=== PATIENT | male | born 1950 | race Caucasian/White ===

== ENCOUNTER 2018-09-02 16:25 | Inpatient (IN) ==
[2018-09-02] MEDS ORDERED: dilTIAZem HCl 125 MG in DEXTROSE 5% 100 ML IV SCH (16:45)
[2018-09-02] MEDS ORDERED: dilTIAZem HCl 5 MG/ML 5 ML VIAL IV STA (16:45)
--- NOTE | 2018-09-02 17:08 | XRay Report ---
XR chest 1V portable CLINICAL HISTORY: palpitations cardiac arrhythmia COMPARISON STUDY: No previous studies for comparison. FINDINGS: The bones soft tissues and hemidiaphragms are normal. The cardiomediastinal silhouette is n ormal. The lungs are clear. The pulmonary vasculature is normal. IMPRESSION: Negative chest. The above report was generated using voice recognition software. It may contain grammatical, syntax or spelling errors. Electronically signed by: Dejuan Geller M.D. 09/02/2018 5:07 PM
[2018-09-02 17:17] LABS: Basophils # (auto) 0.02 K/uL (0-0.2); Basophils % (auto) 0.2 %; Eosinophils # (auto) 0.09 K/uL (0-0.5); Eosinophils % (auto) 0.8 %; Hematocrit (blood only) 46.2 % (42-52); Hemoglobin 16.9 g/dL (14.0-18.0); Immature Granulocytes # (auto) 0.03 K/uL (0.00-0.02); Immature Granulocytes % (auto) 0.3 %; Lymphocytes # (auto) 2.51 K/uL (1.2-3.4); Lymphocytes % (auto) 23.4 %; Mean Corpuscular Hgb Conc 36.6 g/dL (32-36); Mean Corpuscular Volume 89.9 fL (80-100); Monocytes # (auto) 1.34 K/uL (0.11-0.59); Monocytes % (auto) 12.5 %; Neutrophils # (auto) 6.75 K/uL (1.4-6.5); Neutrophils % (auto) 62.8 %; Platelet Count 229 K/uL (130-400); RDW Coefficient of Variation 12.7 % (11.5-14.5); RDW Standard Deviation 41.7 fL (36.4-46.3); Red Blood Count 5.14 M/uL (4.7-6.1); White Blood Count 10.74 K/uL (4.8-10.8)
[2018-09-02 17:28] LABS: Prothrombin Time 10.7 Seconds (9.0-12.0)
[2018-09-02 17:32] LABS: BUN Creatinine Ratio 22.8 (10-20); Calcium 9.3 mg/dl (8.5-10.1); Creatinine Clr Calc Pharmacy 74.7 ml/min; Est GFR (African American) 89.7; Est GFR (Non-African American) 77.4; Magnesium 2.6 mg/dl (1.8-2.4); Potassium 3.7 mmol/L (3.5-5.1)
[2018-09-02 17:43] LABS: Albumin Globulin Ratio 1.2 (0.9-2); Globulin 3.4 gm/dl (2.5-4.0); Total Protein 7.4 gm/dl (6.4-8.2); Troponin I 0.022 ng/ml (0-0.045)
--- NOTE | 2018-09-02 18:58 | Emergency Department Note ---
Entered by Farida Campos acting as a scribe for History of Present Illness General Chief complaint: Arrhythmia/Palpitations Stated complaint: IRREGULAR HEARTBEAT, ELEVATED BP Source: patient History of Present Illness Onset (ago): day(s) 2 Location: chest Severity: similar to prior episodes Quality: + other (arrhythmias and an elevated blood pressure ) Associated symptoms: + other; no chest pain and no shortness of breath The patient is a 67 year old male who presents to the Emergency Room with complaints of arrhythmias and an elevated blood pressure beginning a few days ferry [place]. He reports he was exercising a lot this morning and he felt like he did not have "all the energy usually had" but did not have any chest pain or SOB. He notes he has had this feeling for the past few days but he did not think anything of it. The patient states he called Vish Soni this morning and he recommended the patient go to the ED for further evaluation. Pt notes he has had an irregular heart beat for a while however, his elevated blood pressure is new. The patient states he had a similar episode a few years ago and his potassium was low. Pt has a hx of high blood pressure and is on 100 mg of Losartan, gout medication, and a statin. Home Medications Home Medications Medication Instructions Recorded Confirmed Type allopurinol 300 mg PO DAILY 09/02/18 09/02/18 History atorvastatin 10 mg PO DAILY 09/02/18 09/02/18 History cholecalciferol (vitamin D3) 2,000 unit PO DAILY 09/02/18 09/02/18 History [Vitamin D3] cyanocobalamin (vitamin B-12) 1,000 mcg PO DAILY 09/02/18 09/02/18 History [Vitamin B-12] flaxseed oil 1,000 mg PO DAILY 09/02/18 09/02/18 History losartan 100 mg PO DAILY 09/02/18 09/02/18 History lutein 20 mg PO DAILY 09/02/18 09/02/18 History omega 5-agn-dqr-fish oil [Fish Oil] 1 cap PO DAILY 09/02/18 09/02/18 History vit C,Y-Jc-hprdc-lutein-zeaxan 1 tab PO DAILY 09/02/18 09/02/18 History [PreserVision AREDS-2] vitamin B complex 1 tab PO DAILY 09/02/18 09/02/18 History Allergies Allergy/AdvReac Type Severity Reaction Status Date / Time Penicillins Allergy Unknown Unverified 09/02/18 16:48 Sulfa (Sulfonamide Allergy Unknown Unverified 09/02/18 16:48 Antibiotics) Past Med/Surg History Medical History Gout (Chronic) High blood pressure (Chronic) Family History Other No pertinent family history Social History marital status: Current Living Situation: Spouse Feels Safe at Home: Yes Smoking Status: Never smoker Review of Systems See HPI for pertinent positives & negatives. and A total of 10 systems reviewed and were otherwise negative Physical Exam Vital Signs Vital Signs - 24 hr 09/02/18 16:30 09/02/18 17:14 09/02/18 17:40 Temperature 36.8 C Temperature Source Oral Sepsis Recent Fever Within 48 Hours No Sepsis Action Taken by Nursing No Action Required Pulse Rate 103 H Pulse Rate [Finger] 113 H 106 H Respiratory Rate 20 17 20 Blood Pressure 162/113 H Blood Pressure [Right Arm] 122/95 131/89 Blood Pressure Mean 129 Blood Pressure Mean [Right Arm] 104 103 Blood Pressure Position Sitting Pulse Oximetry 97 97 98 Oxygen Delivery Method Room Air Room Air Room Air 09/02/18 18:30 Temperature Temperature Source Sepsis Recent Fever Within 48 Hours Sepsis Action Taken by Nursing Pulse Rate Pulse Rate [Finger] 103 H Respiratory Rate 18 Blood Pressure Blood Pressure [Right Arm] 101/83 Blood Pressure Mean Blood Pressure Mean [Right Arm] 89 Blood Pressure Position Pulse Oximetry 97 Oxygen Delivery Method Room Air GENERAL: Awake, alert, well-appearing, in no distress HENT: Normocephalic, atraumatic. EYES: Normal conjunctiva. Sclera non-icteric. NECK: Supple. No nuchal rigidity. RESPIRATORY: Clear to auscultation. No wheezes. Normal respiratory effort. CARDIAC: Irregularly irregular rate and rhythm. Tachycardic. Extremities warm and well perfused. GI: Soft, non-distended. No tenderness to palpation. No rebound or guarding. RECTAL: Deferred. MUSCULOSKELETAL: Atraumatic. Chest examination reveals no tenderness LOWER EXTREMITIES: Calves are equal size bilaterally and non-tender. No edema NEURO: Normal sensorium. No sensory or motor deficits noted. No facial droop. SKIN: Warm and dry. No rash or jaundice noted. Course 1638: The patient was evaluated in room A10, and a complete history and physical examination were performed. 1855: I reviewed the patient's case with KAELA Yadav Hospitalist. Junaid Jose [facility] will evaluate the patient for further management. Consultations Consultation #1: I reviewed the patient's case with KAELA Yadavist. Junaid Jose [facility] will evaluate the patient for further management. Time: 18:55 Administered Medications Diltiazem HCl 125 mg/ Dextrose 125 mls @ 5 mls/hr IV .Q24H FAITH; Protocol Stop: 10/02/18 16:44 Last Titration: 09/02/18 18:31 Dose: 7.5 mg/hr, 7.5 mls/hr Documented by: [id number] Admin: 09/02/18 17:08 Dose: 5 mg/hr, 5 mls/hr Documented by: [id number] Cosigned by: [id number] Discontinued Medications Diltiazem HCl (Cardizem) 10 mg IV NOW STA Stop: 09/02/18 16:46 Last Admin: 09/02/18 17:08 Dose: 10 mg Documented by: [id number] Cosigned by: [id number] Medical Decision Making Differential Diagnosis Differential diagnosis: Etiologies such as premature contractions, electrolyte abnormality, cardiac dysrhythmia, thyroid dysfunction, pulmonary embolism, infection, gastrointestinal, as well as others were entertained. Home Medications Current Medication List: was personally reviewed by me Laboratory Data Attestation: I reviewed the patient's lab results. Result diagrams: 09/02/18 16:57 09/02/18 16:57 Lab Results 09/02/18 09/02/18 09/02/18 Range/Units 16:57 16:57 16:57 WBC 10.74 (4.8-10.8) K/uL RBC 5.14 (4.7-6.1) M/uL Hgb 16.9 (14.0-18.0) g/dL Hct 46.2 (42-52) % MCV 89.9 (80-100) fL MCH 32.9 (25-34) pg MCHC 36.6 H (32-36) g/dL RDW Std Deviation 41.7 (36.4-46.3) fL RDW Coeff of Abraham 12.7 (11.5-14.5) % Plt Count 229 (130-400) K/uL MPV 9.0 (7.4-10.4) fL Immature Gran % (Auto) 0.3 % Neut % (Auto) 62.8 % Lymph % (Auto) 23.4 % [place] % (Auto) 12.5 % Eos % (Auto) 0.8 % Baso % (Auto) 0.2 % Immature Gran # (Auto) 0.03 H (0.00-0.02) K/uL Neut # (Auto) 6.75 H (1.4-6.5) K/uL Lymph # (Auto) 2.51 (1.2-3.4) K/uL [place] # (Auto) 1.34 H (0.11-0.59) K/uL Eos # (Auto) 0.09 (0-0.5) K/uL Baso # (Auto) 0.02 (0-0.2) K/uL PT 10.7 (9.0-12.0) Seconds INR 1.0 (0.9-1.1) Sodium 138 (136-145) mmol/L Potassium 3.7 (3.5-5.1) mmol/L Chloride 107 (98-107) mmol/L Carbon Dioxide 22 (21-32) mmol/L Anion Gap 9.0 (3-11) BUN 23 H (7-18) mg/dl Creatinine 0.99 (0.6-1.4) mg/dl Est Cr Clr Drug Dosing 74.7 ml/min Est GFR ( Amer) 89.7 Est GFR (Non-Af Amer) 77.4 BUN/Creatinine Ratio 22.8 H (10-20) Glucose 98 (70-99) mg/dl Calcium 9.3 (8.5-10.1) mg/dl Magnesium 2.6 H (1.8-2.4) mg/dl Total Bilirubin 1.0 (0.2-1) mg/dl AST 27 (15-37) U/L ALT 36 (12-78) U/L Alkaline Phosphatase 42 L (45-117) U/L Troponin I 0.022 (0-0.045) ng/ml Total Protein 7.4 (6.4-8.2) gm/dl Albumin 4.0 (3.4-5.0) gm/dl Globulin 3.4 (2.5-4.0) gm/dl Albumin/Globulin Ratio 1.2 (0.9-2) TSH 2.180 (0.300-4.500) uIu/ml Imaging Data Radiologist's Impression: Radiology results as stated below per my review and the radiologist's interpretation: XR chest 1V portable CLINICAL HISTORY: palpitations cardiac arrhythmia COMPARISON STUDY: No previous studies for comparison. FINDINGS: The bones soft tissues and hemidiaphragms are normal. The cardiomediastinal silhouette is normal. The lungs are clear. The pulmonary vasculature is normal. IMPRESSION: Negative chest. The above report was generated using voice recognition software. It may contain grammatical, syntax or spelling errors. Electronically signed by: Dejuan Geller M.D. 09/02/2018 5:07 PM ECG Data Attestation: I personally reviewed and interpreted this ECG as follows: Indication: palpitations Rate (beats per minute): 133 Rhythm: atrial fibrillation (with RVR) Findings: + other (nonspecific ST changes ); no ST elevation Blood Pressure Blood Pressure Findings: Elevated blood pressure Blood Pressure Disposition: elevated BP felt to be situational MDM Narrative Patient is a 67-year-old gent with a history of hypertension and gout presenting today with complaints of generalized malaise and decreased exercise tolerance over the past day or 2. Called his doctor and referred here for evaluation. States occasionally has had electrolyte abnormalities in the past and occasional irregular heart rate. Denies a history of atrial fibrillation. And to be in atrial fibrillation with rapid ventricular response here. Not on aspirin anticoagulation normally. Given some diltiazem for rate control. I's were checked along with thyroid function. Troponin was checked. Chest x-ray obtained. No gross evidence of fluid overload. Troponin slightly detectable but not abnormal. Reevaluate the patient and increasing his diltiazem drip. Still with some episodes when does not at rest of RVR. Discussed with patient long-term options of anticoagulation given his chads vas score of 2. Given the increasing requirements for the diltiazem heparinized and discussed with hospitalist for admission. Impression & Plan Atrial fibrillation with rapid ventricular response Critical Care Time I have personally spent greater than 40 minutes of critical care time in the direct management of this patient. This includes bedside care, interpretation of diagnostic studies, and testing, discussion with consultants, patient, and family members, and other required patient management activities. This 40 minutes is in excess of all separately billable procedures. Critical Care Time: Yes Total Critical Care Time: 40 Discharge Plan Visit Data Chief Complaint: Arrhythmia/Palpitations Stated Complaint: IRREGULAR HEARTBEAT, ELEVATED BP ED Provider: Kevin Pizano Discharge Problem: Atrial fibrillation with rapid ventricular response Patient Disposition: Being Evaluated by Hospitalist Forms Stand Alone Forms: My [facility] Prescriptions Prescriptions: No Action atorvastatin 10 mg tablet 10 mg PO DAILY RF: 0 allopurinol 300 mg tablet 300 mg PO DAILY RF: 0 losartan 100 mg tablet 100 mg PO DAILY RF: 0 cyanocobalamin (vitamin B-12) [Vitamin B-12] 1,000 mcg Tablet Extended Release 1,000 mcg PO DAILY RF: 0 flaxseed oil 1,000 mg Capsule 1,000 mg PO DAILY RF: 0 vitamin B complex Tablet 1 tab PO DAILY RF: 0 lutein 20 mg Capsule 20 mg PO DAILY RF: 0 cholecalciferol (vitamin D3) [Vitamin D3] 2,000 unit Capsule 2,000 unit PO DAILY RF: 0 omega 4-ddn-npz-fish oil [Fish Oil] 1,000 mg (120 mg-180 mg) Capsule 1 cap PO DAILY RF: 0 PreserVision AREDS-2 [id number] ki-vbmr-gp-mg Capsule 1 tab PO DAILY RF: 0 Referrals Referrals: Santy Hughes DO [Primary Care Provider] - The scribe's documentation has been prepared under my direction and personally reviewed by me in its entirety. I confirm that the note above accurately reflects all work, treatment, procedures, and medical decision making performed by me.
[2018-09-02] MEDS ORDERED: METOPROLOL TARTRATE 50 MG TAB PO STA (19:30)
[2018-09-02] MEDS ORDERED: NSS + 20MEQ KCL 20 MEQ/1,000 ML BAG IV ONE (19:30)
[2018-09-02] MEDS ORDERED: POTASSIUM CHLORIDE 20 MEQ TABCR PO STA (19:30)
[2018-09-02] MEDS ORDERED: HEPARIN 25000 UNIT/500 ML D5W IV ONE (19:37)
[2018-09-02] MEDS ORDERED: HEPARIN SOD (PORCINE) 1000 UNIT/ML 10 ML VIAL ONE (19:37)
[2018-09-02 20:00] LABS: Partial Thromboplastin Ratio 0.9; Partial Thromboplastin Time 24.2 Seconds (21.0-31.0)
--- NOTE | 2018-09-02 20:33 | History & Physical Report ---
Date of Service September 02, 2018 Assessment & Plan (1) Atrial fibrillation with rapid ventricular response: New onset At least a few days duration May be secondary to uncontrolled blood pressure at home hyperlipidemia, as per records PCU Initiate beta-gemini Wean off Cardizem drip Supplement potassium IVF bolus TTE, cardiology consult new onset A. fib DVT prophylaxis. Heparin Full code History of Present Illness Chief Complaint: Palpitations Primary Care Provider: Santy Hughes DO History obtained from patient and records. Medical history significant for hypertension, hyperlipidemia, GERD, gout, skin cancer as per records. Last few days patient noted blood pressure to be higher than usual, SBP 170s. Intermittent palpitations. Workout routines longer duration than usual. May have happened in the past. No chest pain, no S OB. Patient sent to the ER by PCP. At the ER, patient noted to be in rapid A. fib, 140-150s. IV Cardizem bolus followed by infusion started at the ER. Medical History as above Surgical History : Tibia fracture surgery Family History : Diabetes, heart disease Personal/Social history : Non-smoker, no EtOH intake, retired from [employer] business Allergies Allergy/AdvReac Type Severity Reaction Status Date / Time Penicillins Allergy Unknown Unverified 09/02/18 16:48 Sulfa (Sulfonamide Allergy Unknown Unverified 09/02/18 16:48 Antibiotics) Home Medications Home Medications Medication Instructions Recorded Confirmed Type PreserVision AREDS-2 1 tab PO DAILY 09/02/18 09/02/18 History allopurinol 300 mg PO DAILY 09/02/18 09/02/18 History atorvastatin 10 mg PO DAILY 09/02/18 09/02/18 History cholecalciferol (vitamin D3) 2,000 unit PO DAILY 09/02/18 09/02/18 History [Vitamin D3] cyanocobalamin (vitamin B-12) 1,000 mcg PO DAILY 09/02/18 09/02/18 History [Vitamin B-12] flaxseed oil 1,000 mg PO DAILY 09/02/18 09/02/18 History losartan 100 mg PO DAILY 09/02/18 09/02/18 History lutein 20 mg PO DAILY 09/02/18 09/02/18 History omega 0-yuj-zzc-fish oil [Fish Oil] 1 cap PO DAILY 09/02/18 09/02/18 History vitamin B complex 1 tab PO DAILY 09/02/18 09/02/18 History apixaban [Eliquis] 5 mg PO BID #60 tab 09/03/18 Rx metoprolol tartrate 25 mg PO BID 30 Days #60 tab 09/03/18 Rx Past Med/Surg History Medical History Gout (Chronic) High blood pressure (Chronic) Family History Other No pertinent family history Social History Preferred Language: [place] Communication Ability: Effective Medical Observer Required: No Beliefs That Will Affect Care: None marital status: Current Living Situation: Spouse Other Information That Helps Us Care for You: No Feels Safe at Home: Yes Safety Concerns: Feels Safe At This Time Smoking Status: Never smoker Hx Alcohol Use: Yes Alcohol type: beer Hx Substance Use: No Review of Systems Review of Systems: As per HPI, all 10 systems reviewed, all other ROS negative Physical Exam Physical Exam: GENERAL: Comfortable, pleasant, no respiratory distress SKIN: Normal color, warm HEENT: [place] palpebral conjunctivae, no ptosis, dry buccal mucosa NECK : Supple, no tenderness CHEST : CTA, no tenderness HEART : Tachycardic, no obvious murmurs ABDOMEN: Some distention, nontender EXTREMITIES : No LE swelling/tenderness, no other conspicuous deformities noted NEUROLOGIC : Coherent, no facial asymmetry, no other gross focality Results & Data Vital Signs (Past 12 Hours) Vital Signs Temp Pulse Pulse Resp BP BP Pulse Ox 09/02/18 19:45 93 H 16 111/76 96 09/02/18 19:43 89 17 128/72 96 09/02/18 19:30 90 13 97 09/02/18 19:21 99 H 29 H 129/94 96 09/02/18 19:15 115 H 14 129/94 97 09/02/18 19:00 95 H 14 132/74 97 09/02/18 18:45 95 H 13 121/92 97 09/02/18 18:31 105 H 16 133/104 H 97 09/02/18 18:30 104 H 103 H 18 101/83 98 09/02/18 18:16 116 H 12 101/83 97 09/02/18 18:00 102 H 20 116/93 97 09/02/18 17:45 111 H 11 L 116/95 97 09/02/18 17:40 106 H 20 131/89 98 09/02/18 17:30 105 H 25 H 131/89 97 09/02/18 17:16 105 H 15 122/95 97 09/02/18 17:14 113 H 17 122/95 97 09/02/18 17:11 112 H 19 100/75 96 09/02/18 17:00 121 H 18 97 09/02/18 16:42 150 H 26 H 141/94 H 09/02/18 16:40 145 H 23 09/02/18 16:30 36.8 C 103 H 20 162/113 H 97 Laboratory Results Laboratory Results WBC 10.74 K/uL (4.8-10.8) 09/02/18 16:57 RBC 5.14 M/uL (4.7-6.1) 09/02/18 16:57 Hgb 16.9 g/dL (14.0-18.0) 09/02/18 16:57 Hct 46.2 % (42-52) 09/02/18 16:57 MCV 89.9 fL (80-100) 09/02/18 16:57 MCH 32.9 pg (25-34) 09/02/18 16:57 MCHC 36.6 g/dL (32-36) H 09/02/18 16:57 RDW Std Deviation 41.7 fL (36.4-46.3) 09/02/18 16:57 RDW Coeff of Abraham 12.7 % (11.5-14.5) 09/02/18 16:57 Plt Count 229 K/uL (130-400) 09/02/18 16:57 MPV 9.0 fL (7.4-10.4) 09/02/18 16:57 Immature Gran % (Auto) 0.3 % 09/02/18 16:57 Neut % (Auto) 62.8 % 09/02/18 16:57 Lymph % (Auto) 23.4 % 09/02/18 16:57 [place] % (Auto) 12.5 % 09/02/18 16:57 Eos % (Auto) 0.8 % 09/02/18 16:57 Baso % (Auto) 0.2 % 09/02/18 16:57 Immature Gran # (Auto) 0.03 K/uL (0.00-0.02) H 09/02/18 16:57 Neut # (Auto) 6.75 K/uL (1.4-6.5) H 09/02/18 16:57 Lymph # (Auto) 2.51 K/uL (1.2-3.4) 09/02/18 16:57 [place] # (Auto) 1.34 K/uL (0.11-0.59) H 09/02/18 16:57 Eos # (Auto) 0.09 K/uL (0-0.5) 09/02/18 16:57 Baso # (Auto) 0.02 K/uL (0-0.2) 09/02/18 16:57 PT 10.7 Seconds (9.0-12.0) 09/02/18 16:57 INR 1.0 (0.9-1.1) 09/02/18 16:57 APTT 24.2 Seconds (21.0-31.0) 09/02/18 16:57 PTT Ratio 0.9 09/02/18 16:57 Sodium 138 mmol/L (136-145) 09/02/18 16:57 Potassium 3.7 mmol/L (3.5-5.1) 09/02/18 16:57 Chloride 107 mmol/L (98-107) 09/02/18 16:57 Carbon Dioxide 22 mmol/L (21-32) 09/02/18 16:57 Anion Gap 9.0 (3-11) 09/02/18 16:57 BUN 23 mg/dl (7-18) H 09/02/18 16:57 Creatinine 0.99 mg/dl (0.6-1.4) 09/02/18 16:57 Est Cr Clr Drug Dosing 74.7 ml/min 09/02/18 16:57 Est GFR ( Amer) 89.7 09/02/18 16:57 Est GFR (Non-Af Amer) 77.4 09/02/18 16:57 BUN/Creatinine Ratio 22.8 (10-20) H 09/02/18 16:57 Glucose 98 mg/dl (70-99) 09/02/18 16:57 Calcium 9.3 mg/dl (8.5-10.1) 09/02/18 16:57 Magnesium 2.6 mg/dl (1.8-2.4) H 09/02/18 16:57 Total Bilirubin 1.0 mg/dl (0.2-1) 09/02/18 16:57 AST 27 U/L (15-37) 09/02/18 16:57 ALT 36 U/L (12-78) 09/02/18 16:57 Alkaline Phosphatase 42 U/L (45-117) L 09/02/18 16:57 Troponin I 0.022 ng/ml (0-0.045) 09/02/18 16:57 Total Protein 7.4 gm/dl (6.4-8.2) 09/02/18 16:57 Albumin 4.0 gm/dl (3.4-5.0) 09/02/18 16:57 Globulin 3.4 gm/dl (2.5-4.0) 09/02/18 16:57 Albumin/Globulin Ratio 1.2 (0.9-2) 09/02/18 16:57 TSH 2.180 uIu/ml (0.300-4.500) 09/02/18 16:57 Diagnostic Findings Chest x-ray was negative for pathology EKG as per my interpretation : Rate 130, A. fib, T wave flattening inferior leads
[2018-09-02] MEDS ORDERED: Heparin IV Standard *NO* Bolus IV ONE (20:37)
[2018-09-02] MEDS ORDERED: PROMETHAZINE HCL 12.5 MG in SODIUM CHLORIDE 0.9% 50 ML IV PRN (21:35)
[2018-09-02] MEDS ORDERED: ACETAMINOPHEN 325 MG TAB PO PRN (21:35)
[2018-09-02] MEDS: Heparin Adult STANDARD Wt-Based Dextrose 5% 25,000 units/500 mL IV SCH (21:35)
[2018-09-02] MEDS ORDERED: LORazepam 0.25 MG/0.5 ML VIAL IV PRN (21:35)
[2018-09-02] MEDS ORDERED: NITROGLYCERIN SL 0.4 MG/TAB TAB SL PRN (21:35)
[2018-09-02] MEDS ORDERED: TRAMADOL HCL 50 MG TABLET PO PRN (21:35)
[2018-09-02] MEDS: METOPROLOL TARTRATE 25 MG TAB PO SCH (23:53)
[2018-09-03 02:08] LABS: Partial Thromboplastin Ratio 2.1
[2018-09-03 02:10] LABS: Partial Thromboplastin Time 57.6 Seconds (21.0-31.0)
[2018-09-03 06:03] LABS: Basophils # (auto) 0.02 K/uL (0-0.2); Basophils % (auto) 0.2 %; Eosinophils # (auto) 0.23 K/uL (0-0.5); Eosinophils % (auto) 2.6 %; Hematocrit (blood only) 43.4 % (42-52); Hemoglobin 15.5 g/dL (14.0-18.0); Immature Granulocytes # (auto) 0.02 K/uL (0.00-0.02); Immature Granulocytes % (auto) 0.2 %; Lymphocytes # (auto) 3.43 K/uL (1.2-3.4); Lymphocytes % (auto) 38.1 %; Mean Corpuscular Hgb Conc 35.7 g/dL (32-36); Mean Corpuscular Volume 91.4 fL (80-100); Mean Platelet Volume 9.2 fL (7.4-10.4); Monocytes # (auto) 0.84 K/uL (0.11-0.59); Monocytes % (auto) 9.3 %; Neutrophils # (auto) 4.46 K/uL (1.4-6.5); Neutrophils % (auto) 49.6 %; Platelet Count 201 K/uL (130-400); RDW Standard Deviation 42.9 fL (36.4-46.3); Red Blood Count 4.75 M/uL (4.7-6.1)
[2018-09-03 06:19] LABS: Partial Thromboplastin Ratio 2.1
[2018-09-03 06:26] LABS: Partial Thromboplastin Time 56.4 Seconds (21.0-31.0)
[2018-09-03 06:46] LABS: BUN Creatinine Ratio 22.5 (10-20); Calcium 8.2 mg/dl (8.5-10.1); Creatinine Clr Calc Pharmacy 91.8 ml/min; Est GFR (African American) 105.6; Est GFR (Non-African American) 91.1; Potassium 4.2 mmol/L (3.5-5.1)
[2018-09-03] MEDS: METOPROLOL TARTRATE 25 MG TAB PO SCH (07:48)
[2018-09-03] MEDS ORDERED: PERFLUTREN LIPID MICROSPHERE (DEFINITY) IV ONE (07:49)
[2018-09-03] MEDS ORDERED: ALLOPURINOL 300 MG TAB PO SCH (09:00)
[2018-09-03] MEDS ORDERED: CYANOCOBALAMIN 500 MCG TABLET (VITAMIN B-12) PO SCH (09:00)
[2018-09-03] MEDS ORDERED: ATORVASTATIN 10 MG TAB PO SCH (09:00)
[2018-09-03 12:33] VITALS: PULSE 64; TEMP 99.3; O2SAT 96
[2018-09-03] MEDS: Heparin Adult STANDARD Wt-Based Dextrose 5% 25,000 units/500 mL IV SCH (14:06)
[2018-09-03 15:29] VITALS: BP 114/62
[2018-09-03] MEDS ORDERED: APIXABAN 5 MG TABLET PO ONE (15:30)
--- NOTE | 2018-09-03 23:38 | Consultation Report ---
DATE OF CONSULTATION: 09/03/2018 CARDIOLOGY CONSULTATION REFERRING PHYSICIAN: Symone Gautam MD PRIMARY CARE PHYSICIAN: Santy Hughes DO INDICATIONS: Paroxysmal atrial fibrillation. HISTORY OF PRESENT ILLNESS: The patient is a 67-year-old male without prior cardiac history. His underlying medical problems include a history of hypertension with somewhat labile blood pressures. He denies prior history of diabetes mellitus, TIA, or stroke. Notes no history of rheumatic or nonrheumatic valvular heart disease, does carry a history of hyperlipidemia on appropriate therapy. Notes no history of angina or congestive heart failure. Notes no sleep disturbances. Denies cough, hoarseness, wheeze, hemoptysis, melena, hematochezia, dysuria, or hematuria. Notes no rash or arthritic complaint. The patient is referred today having developed tachy palpitations which he noticed on check of heart rate after a visit to the gym. He noted he had been feeling somewhat weak over 1-2 days, but no acute complaints. Noted no syncope or near syncope, but did check home blood pressure and found his heart rates to be high and erratic. He presented to the Emergency Room where he was found to be in atrial fibrillation with rapid ventricular response. He was initially given IV diltiazem and then switched to oral metoprolol with subsequent spontaneous conversion to sinus rhythm while on IV heparin. He is referred now for further evaluation. He is a vigorously active male for age and recently traveled throughout the country skiing and hiking with good tolerance. Notes no prior history of atrial fibrillation or arrhythmias. Notes no prior history of cardiac disease. REVIEW OF SYSTEMS: Otherwise negative. ALLERGIES: NOTED TO BE PENICILLIN AND SULFA. MEDICATIONS: Prior to hospitalization were allopurinol 300 mg p.o. daily, atorvastatin 10 mg p.o. daily, vitamin D3 and B12, flaxseed oil, losartan 100 mg p.o. daily, Lutein 20 mg p.o. daily, omega-3 fish oils, PreserVision, and B complex. PAST SURGICAL HISTORY: Notable for repair of a fracture of his leg in the very remote past. FAMILY HISTORY: Notable for valvular heart disease in father in his later years. SOCIAL HISTORY: The patient resides locally in [place]. He is retired. He is a nonsmoker, rare alcohol user. PHYSICAL EXAMINATION: GENERAL: The patient is a pleasant, age appropriate male in no acute distress. VITAL SIGNS: Currently reveal a heart rate of 60, blood pressure is 115/78. HEENT: Normocephalic and atraumatic. Nares without discharge. Throat was clear. NECK: Without thyromegaly, lymphadenopathy, JVD. There are no carotid bruits. Carotid pulses are 2/4. LUNGS: Clear to auscultation. CARDIOVASCULAR: Regular with normal S1, S2. No murmur, gallop or rub. PMI is nondisplaced. ABDOMEN: Soft, nontender. There is no palpable hepatosplenomegaly. There is no hepatojugular reflux. EXTREMITIES: Without cyanosis or clubbing. There is no peripheral edema. There are intact distal pulses. NEUROLOGIC: The patient is alert and oriented, answering questions appropriately. DATA: EKG on initial ER presentation revealed atrial fibrillation with rapid ventricular response, rate 133. Repeat EKG after conversion to sinus rhythm at 2343 on 09/02/2018 revealed sinus bradycardia at a rate of [address] segment changes. EKG this morning reveals sinus rhythm with atrial ectopic beats, otherwise normal tracing. Echocardiogram reveals normal left ventricular size, thickness, and overall function with mild sclerosis without stenosis, mild left atrial enlargement, type 2 diastolic dysfunction. Chest x-ray on presentation revealed no infiltrate or edema. Normal size cardiac silhouette. LABORATORY STUDIES: White cell count is 9.0, hemoglobin 15.5, platelet count is 201. Sodium is 139, potassium is 4.2, chloride is 112, bicarbonate is 23, BUN is 18, creatinine 0.8, glucose is 102, calcium is 8.2. TSH is 2.1. Albumin level is 4. IMPRESSION AND PLAN: A 67-year-old male who presents with new onset/paroxysmal atrial fibrillation with spontaneous conversion to sinus rhythm on initiation of therapy. His CHADS2-Vasc score is 2 for age 65-74 and hypertension. Discussed findings in detail with the patient. Given recent conversion to sinus rhythm on IV heparin, would maintain anticoagulation minimum of 30 days, but likely lifelong. He does raise some concerns regarding avocations including extensive skiing, hiking and back country, etc. Would continue metoprolol in addition to losartan for hypertension control, likely the precipitating cause. Followup will be scheduled in our office in the next 2-4 weeks' time. Discussed all findings and management details at length with patient and .
--- NOTE | 2018-09-07 07:23 | Discharge Summary ---
Date of Service September 07, 2018 Admission HPI Per Admitting Provider History obtained from patient and records. Medical history significant for hypertension, hyperlipidemia, GERD, gout, skin cancer as per records. Last few days patient noted blood pressure to be higher than usual, SBP 170s. Intermittent palpitations. Workout routines longer duration than usual. May have happened in the past. No chest pain, no S OB. Patient sent to the ER by PCP. At the ER, patient noted to be in rapid A. fib, 140-150s. IV Cardizem bolus followed by infusion started at the ER. Medical History as above Surgical History : Tibia fracture surgery Family History : Diabetes, heart disease Personal/Social history : Non-smoker, no EtOH intake, retired from [employer] business Principal Diagnosis PAROXYSMAL AFIB -NEW DIAGNOSIS Discharge Exam GENERAL: No sign of distress, HEENT: Sclera nonicteric, pink-purple bilateral equal reactive to light extraocular muscle intact Normal oral mucosa, neck: No JVD, no thyromegaly, trachea midline Lungs: Clear to auscultate, no wheeze or rales Cardiovascular: Regular S1 and S2, no murmur or gallop, no JVD, no lower extremity edema Abdomen: Soft, nontender, bowel sounds active, no hepatosplenomegaly Extremities: No rash or deformity, normal joint, Neuro: No focal neurological deficit, no dysarthria, no facial droop Psych: Alert awake oriented x3: Euthymic Skin: No rash LYMPH NODES: No cervical lymphadenopathy Discharge Data Allergies Allergy/AdvReac Type Severity Reaction Status Date / Time Penicillins Allergy Unknown Unverified 09/02/18 16:48 Sulfa (Sulfonamide Allergy Unknown Unverified 09/02/18 16:48 Antibiotics) Consultations 09/02/18 18:52 ED Decision to Admit Stat 09/02/18 21:35 Consult Cardiology Routine Hospital Course (1) Atrial fibrillation with rapid ventricular response: New onset At least a few days duration May be secondary to uncontrolled blood pressure at home appreciate input from Cardiology pt is converted to sinus with rate controlled early this morning does not have any symptom of palpitation , sob, chest heaviness or [place] pt started in Beta gemini , Iv heparin for stroke prophylaxis appreciate input from Cardiology pt is stable to be discharged home today with Metoprolol 25 mg PO BID Eliquis 5 mg PO BID ( stroke for non valvular Afib ) out pt follow up with cardiology in 2-3 weeks pt and his voiced understanding All questions answered contacted Pt's Pharmacy [facility] Pay for 1 month supply of Eliquis 180$ coupon was sent to pharmacy by case management for 1 month free of cost supply of Eliquis Cardiology Dr Quezada updated Cardiology office at [facility] will contact pt -and provide assistance to have Eliquis affordable pt is discharged home in stable condition Total Time Total Time Spent Total Time Spent (In Minutes): apprrox 40 mins Total Time Includes: Examination of the Patient, Discharge Planning, Medication Reconciliation and Communication With Other Providers Discharge Plan Discharge Items Patient Disposition: Home - Self-Care Reason For Visit: AFIB Discharge Diagnosis: ATRIAL FIBRILATION Discharge Goals: Decrease discomfort and Therapeutic intervention Activity: Resume your previous activity Non-emergency contact: Primary Care Provider Call non-emergency contact if: you have any medication questions Follow-up/Referrals: Thony Quezada MD [Physician] - Helga Tamez MD [Hospitalist] - 09/08/18 10:00 am (HOSPITAL FOLLOW UP WITH DR TAMEZ ) Santy Hughes DO [Primary Care Provider] - 09/08/18 10:00 am (HOSPITAL FOLLOW UP WITH DR MAC SILVA SCHEDULE IS FULL ) Diet: Heart Healthy Add Provider Instructions: HOSPITAL FOLLOW UP WITH DR TAMEZ ON 09/08/18 [address] FOLLOW UP WITH DR QUEZADA , OFFICE WILL CALL WITH APPOINTMENT Prescriptions: New metoprolol tartrate 25 mg Tablet 25 mg PO BID 30 Days Qty: 60 RF: 2 Eliquis 5 mg tablet 5 mg PO BID Qty: 60 RF: 3 Continued atorvastatin 10 mg tablet 10 mg PO DAILY RF: 0 allopurinol 300 mg tablet 300 mg PO DAILY RF: 0 losartan 100 mg tablet 100 mg PO DAILY RF: 0 cyanocobalamin (vitamin B-12) [Vitamin B-12] 1,000 mcg Tablet Extended Release 1,000 mcg PO DAILY RF: 0 flaxseed oil 1,000 mg Capsule 1,000 mg PO DAILY RF: 0 vitamin B complex Tablet 1 tab PO DAILY RF: 0 lutein 20 mg Capsule 20 mg PO DAILY RF: 0 cholecalciferol (vitamin D3) [Vitamin D3] 2,000 unit Capsule 2,000 unit PO DAILY RF: 0 omega 5-elq-suy-fish oil [Fish Oil] 1,000 mg (120 mg-180 mg) Capsule 1 cap PO DAILY RF: 0 PreserVision AREDS-2 [id number] dn-lixe-ka-mg Capsule 1 tab PO DAILY RF: 0 Stand-Alone Forms: [facility]/Other Patient Handouts: Apixaban Oral tablet, Metoprolol Tartrate Oral tablet, AFL/Afib, Fibrillation Atrial Dc Discharge Orders: Discharge Order (Routine); Ordered 09/03/18 Ordered By: Symone Gautam Admission Data Admit Date/Time: 09/02/18 20:35 Attending Provider: Symone Gautam Admit Provider: Bassam Ross Primary Care Provider: Santy Hughes Other Providers: Thony Quezada Service: Telemetry Other Interventions: Discharge Summary Assessment (RN) Last Done: 09/03/18 15:26 DC Date/Time DO NOT enter until pt leaves facility: 09/03/18 16:06
== END 2018-09-03 16:06 | disposition home or self-care (01) | DRG 310 ==
LOC: ED 16:25 → 2S 20:35
DX: E78.5 Hyperlipidemia, unspecified; M10.9 Gout, unspecified; I48.0 Paroxysmal atrial fibrillation; K21.9 Gastro-esophageal reflux disease without esophagitis; Z79.899 Other long term (current) drug therapy; I10 Essential (primary) hypertension

== ENCOUNTER 2019-01-19 08:42 | Inpatient (IN) ==
--- OUTSIDE RECORDS SUMMARY | 2019-01-19 09:25 | External Medical Summary | Continuity of Care Document ---
:1950 Author Name Yocasta Barron Address Unavailable Unavailable , Care Team Providers Name Role Phone Unavailable Unavailable Unavailable Monse Barron Unavailable [email or web address] Unavailable Unavailable Unavailable Unavailable Unavailable Problems BCC (basal cell carcinoma) (173.91) (C44.91) Actinic keratosis (702.0) (L57.0) Atypical nevus (216.9) (D22.9) History of SCC (squamous cell carcinoma) of skin (V10.83) (Z 85.828) History of basal cell carcinoma (V10.83) (Z85.828) History of squamous cell carcinoma in situ of skin (V13.89) (Z86.008) Inflamed seborrheic keratosis (702.11) (L82.0) Seborrheic dermatitis (690.10) (L21.9) Allergies and Adverse Reactions Penicillins (Allergy) Sulfa Drugs (Allergy) Medications Atorvastatin Calcium 10 MG Oral Tablet , M.D. Refills: 0 Ketoconazole 2 % External Shampoo; APLLY TO AFFECTED AREAS ONCE DAILY DIRECTED Anderson Shea Start: 25-Jan-2014 Quantity: 1 120 ML Bottle Refills: 2 Fluocinonide 0.05 % External Solution; APPLY INCH PRN Anderson Mark Start: 25-Jan-2014 Quantity: 1 60 ML Bottle Refills: 2 Cozaar 100 MG Oral Tablet; TAKE 1 TABLET DAILY. , M.D. Refills: 0 Allopurinol 300 MG Oral Tablet , M.D. Refills: 0 Procedures Procedures not documented Immunizations Immunizations not documented Social History - Smoking Status Never smoker Plan of Treatment Planned Observations Planned Goals not documented Results No Known Results Results not documented Encounters Appointment; Laura Huggins PA-C 29-Sep-2017 13:30 Encounter Diagnosis: Problem not documented
[2019-01-19] MEDS ORDERED: ACETAMINOPHEN 325 MG TAB PO PRN (10:47)
[2019-01-19] MEDS ORDERED: POLYETHYLENE (MIRALAX) 17 GM PACK PO PRN (10:47)
[2019-01-19] MEDS ORDERED: ZOLPIDEM TARTRATE 5 MG TAB PO PRN (10:47)
[2019-01-19] MEDS ORDERED: ALUMINUM/MAGNESIUM SUSP 30 ML UDC PO PRN (10:47)
[2019-01-19] MEDS ORDERED: ONDANSETRON INJ 2 MG/ML 2 ML VIAL IV PRN (10:47)
[2019-01-19] MEDS ORDERED: MAGNESIUM HYDROXIDE SUSP 30 ML UDC PO PRN (10:47)
[2019-01-19] MEDS: SOTALOL HCL 80 MG TAB PO SCH ×2 (11:19→20:12)
[2019-01-19 11:40] LABS: Creatinine Clr Calc Pharmacy 87.9 ml/min; Est GFR (African American) 102.3; Est GFR (Non-African American) 88.3
[2019-01-19] MEDS: CEROVITE ADV FORMULA TAB PO SCH (12:41)
[2019-01-19] MEDS: APIXABAN 5 MG TABLET PO SCH ×2 (12:41→20:12)
[2019-01-19] MEDS: ALLOPURINOL 300 MG TAB PO SCH (12:42)
[2019-01-19] MEDS: CHOLECALCIFEROL 1,000 UNITS TAB PO SCH (12:42)
[2019-01-19] MEDS: NIACIN 500 MG TAB PO SCH (12:42)
[2019-01-19] MEDS: OMEGA-3 (PURIFIED FISH OIL) 1 GM CAP PO SCH (12:43)
[2019-01-19] MEDS: FOLIC ACID 400 MCG TAB PO SCH (12:43)
[2019-01-19] MEDS: VITAMIN B COMPLEX TAB PO SCH (12:43)
[2019-01-19] MEDS: CYANOCOBALAMIN 500 MCG TABLET (VITAMIN B-12) PO SCH (12:44)
--- NOTE | 2019-01-19 17:07 | History and Physical Report ---
DATE OF ADMISSION: 01/19/2019 REASON FOR ADMISSION: Paroxysmal atrial fibrillation with sotalol loading. HISTORY OF PRESENT ILLNESS: Mr. Lucero is a very pleasant 68-year-old gentleman who follows with myself as an outpatient, presented to [facility] today for elective admission for sotalol loading. The patient has a history of paroxysmal atrial fibrillation and despite being on metoprolol, again lapsed into atrial fibrillation. Options for antiarrhythmic therapy were discussed and it was agreed that we will start sotalol therapy. This will require at least 72 hours of inpatient telemetry monitoring and daily EKGs. The patient presents today. Clinically, he states he feels well and denies any current chest pain, shortness of breath, palpitations, lightheadedness, dizziness or syncope. The patient did not take his metoprolol today as I instructed. PAST SURGICAL HISTORY: 1. Colonoscopies. 2. Leg surgery. MEDICAL ILLNESSES: 1. Paroxysmal atrial fibrillation with CHADS-VASc score of 2. 2. Hypertension. 3. Dyslipidemia. FAMILY HISTORY: Noncontributory. SOCIAL HISTORY: Denies any alcohol, tobacco or recreational drug use. He is and lives at home with his . He is very active, exercises on a regular basis and is discouraged by the fact that his heart rate does not increase with exercise after being on beta gemini. REVIEW OF SYSTEMS: As per HPI, all other review of systems reviewed and negative at this time. ALLERGIES: 1. PENICILLIN. 2. SULFA. MEDICATIONS AN OUTPATIENT: 1. Eliquis 5 mg b.i.d. 2. Atorvastatin 10 mg daily. 3. Metoprolol tartrate 25 mg b.i.d. 4. Also multiple lowj-hif-qgmsqav supplements. PHYSICAL EXAMINATION: VITALS: Temperature 36.8, pulse 106, respiratory rate 12, blood pressure 146/76. GENERAL: Awake, alert, oriented x3 in no acute distress. HEENT: Normocephalic, atraumatic. Pupils equal, round, reactive to light and accommodation. Extraocular muscles intact. Anicteric sclerae. Moist mucous membranes. NECK: No JVD, no bruit. CARDIOVASCULAR: Irregularly irregular, unable to appreciate any murmurs, rubs or gallops. PULMONARY: Clear to auscultation bilaterally. No rales, rhonchi, or wheezing. ABDOMEN: Bowel sounds x4, soft. No rebound, guarding, tenderness. No organomegaly. EXTREMITIES: No clubbing, cyanosis or edema. +2 pedal pulses bilaterally. SKIN: Warm and dry. TEST RESULTS: A 12-lead EKG performed today independently reviewed at this time shows atrial fibrillation at 99 beats per minute with a QTC of 413 milliseconds. IMPRESSION: 1. Paroxysmal atrial fibrillation, currently in atrial fibrillation with rapid ventricular response for sotalol loading. 2. Hypertension. 3. Dyslipidemia. RECOMMENDATIONS: Mr. Lucero once again has been discussed with the pathophysiology and treatment options for atrial fibrillation and would like to proceed with sotalol loading and possible DC cardioversion, so sotalol 80 mg b.i.d. will be started with the first dose this a.m. Daily EKGs will be performed to follow his QTC and he will be maintained constantly on telemetry monitoring to evaluate for possible ventricular arrhythmias. His Eliquis will be continued uninterrupted as it has been and should he not convert to normal sinus rhythm on his own after the initiation of sotalol. We will tentatively plan for DC cardioversion on 01/21/2019. Again, the patient and his are agreeable with the above plan.
[2019-01-20 07:40] LABS: BUN Creatinine Ratio 15.6 (10-20); Creatinine Clr Calc Pharmacy 79.9 ml/min; Est GFR (African American) 96.1; Est GFR (Non-African American) 82.9; Potassium 4.1 mmol/L (3.5-5.1)
[2019-01-20] MEDS: SOTALOL HCL 80 MG TAB PO SCH ×2 (08:57→19:33)
[2019-01-20] MEDS: ALLOPURINOL 300 MG TAB PO SCH (08:58)
[2019-01-20] MEDS: CHOLECALCIFEROL 1,000 UNITS TAB PO SCH (08:58)
[2019-01-20] MEDS: ATORVASTATIN 10 MG TAB PO SCH (08:58)
[2019-01-20] MEDS: CEROVITE ADV FORMULA TAB PO SCH (08:58)
[2019-01-20] MEDS: CYANOCOBALAMIN 500 MCG TABLET (VITAMIN B-12) PO SCH (08:59)
[2019-01-20] MEDS: FOLIC ACID 400 MCG TAB PO SCH (08:59)
[2019-01-20] MEDS: MAGNESIUM OXIDE 400 MG TAB PO SCH (08:59)
[2019-01-20] MEDS: APIXABAN 5 MG TABLET PO SCH ×2 (08:59→19:33)
[2019-01-20] MEDS: OMEGA-3 (PURIFIED FISH OIL) 1 GM CAP PO SCH (08:59)
[2019-01-20] MEDS: VITAMIN B COMPLEX TAB PO SCH (08:59)
[2019-01-20] MEDS ORDERED: NON-FORMULARY MEDICATION (Flaxseed Oil 1,000 MG) PO SCH (09:00)
[2019-01-20] MEDS ORDERED: NON-FORMULARY MEDICATION (Lutein 20 MG) PO SCH (09:00)
[2019-01-20] MEDS ORDERED: NON-FORMULARY MEDICATION (Vit C,E-Zn-Coppr-Lutein-Zeaxan [Preservision Areds-2] 1 TAB) PO SCH (09:00)
[2019-01-20] MEDS: NIACIN 500 MG TAB PO SCH (09:04)
--- NOTE | 2019-01-20 13:09 | Cardiology Progress Note ---
Date of Service January 20, 2019 Assessment & Plan (1) Atrial fibrillation with rapid ventricular response: remains in afib, which is to be expected asymptomatic QTc stable at 454 ms no ventricular arrhythmias on tele cont sotalol cont Eliquis likely DC cardioversion on 01/21 npo after midnight (2) Encounter for monitoring anti-arrhythmic therapy: QTc stable K level stable Subjective Pt seen and examined, without complaint. Did have some flushing yesterday after receiving hospital's brand of niacin, otherwise, without issue. Denies cp, sob, palpitations, lightheadedness or dizziness. tele reviewed: afib rate controlled. Review of Systems Review of Systems: All systems reviewed & are unremarkable except as noted in HPI & below Physical Exam Physical Exam: General: Awake, alert and oriented x 3. No acute distress. HEENT: Normocephalic, atraumatic. Pupils equal, round and reactive to light and accommodation. Extraocular muscles are intact. Anicteric sclera. Moist mucous membranes. Neck: No JVD. No bruit. Cardiovascular: irregularly irregular, unable to appreciate murmur, rub or gallop. Pulmonary: Clear to auscultation bilaterally. No rales, rhonchi, or wheezing. Abdomen: Bowel sounds x 4, soft. No rebound, guarding or tenderness. No organomegaly. Extremities: No clubbing, cyanosis or edema. +2 pedal pulses bilaterally. Skin: Warm and dry. Results & Data Vital Signs (Past 12 Hours) Vital Signs Temp Pulse Resp BP Pulse Ox 01/20/19 11:47 36.7 C 98 H 20 123/86 96 01/20/19 08:19 37.5 C 89 22 114/84 96 01/20/19 03:57 36.7 C 116 H 20 121/78 97
[2019-01-21] MEDS: APIXABAN 5 MG TABLET PO SCH (08:33)
[2019-01-21] MEDS: SOTALOL HCL 80 MG TAB PO SCH (08:34)
[2019-01-21] MEDS ORDERED: LUTEIN 20 MG PO SCH (09:00)
[2019-01-21] MEDS ORDERED: [UNRECOGNIZED DRUG - OTHER] SCH (09:00)
[2019-01-21] MEDS ORDERED: ZEAXANTHIN PO SCH (09:00)
[2019-01-21] MEDS ORDERED: FLAXSEED OIL 1000 MG PO SCH (09:00)
[2019-01-21] MEDS ORDERED: COQ PO SCH (09:00)
[2019-01-21] MEDS ORDERED: [UNRECOGNIZED DRUG - OTHER] PO SCH (09:00)
[2019-01-21] MEDS ORDERED: fentaNYL citrate 100 MCG/2 ML VIAL ONE (09:33)
[2019-01-21] MEDS ORDERED: MIDAZOLAM HCL 1 MG/ML 2ML VIAL ONE (09:34)
--- NOTE | 2019-01-21 10:00 | Pre Anesthesia Assessment ---
Date of Service January 21, 2019 Pre Sedation Assessment Vital Signs Temp Pulse Pulse Resp BP Pulse Ox 01/21/19 07:39 36.7 C 108 H 19 139/94 93 01/21/19 06:45 135 H 01/21/19 04:49 36.6 C 87 18 118/73 97 01/21/19 00:10 36.6 C 119 H 19 109/84 98 01/21/19 00:00 101 H 01/20/19 19:36 36.9 C 64 18 155/92 H 96 01/20/19 16:17 37.0 C 88 18 113/85 96 01/20/19 14:45 102 H 01/20/19 11:47 36.7 C 98 H 20 123/86 96 Pre-Sedation Airway Assessment Smoking Status: Never smoker Notes The planned sedation has been discussed with the patient. Informed Consent was obtained. I have identified the patient, determined the appropriateness of sedation and have assessed the patient immediately prior to the procedure. All medicine(s) and interventions are by my order.
--- NOTE | 2019-01-21 10:01 | History & Physical Bridge Note ---
Date of Service January 21, 2019 History & Physical Bridge Note I have examined the patient, reviewed the History & Physical and in the interval since the performance of the History & Physical I have noted the following changes of clinical significance: no changes noted
--- NOTE | 2019-01-21 10:27 | Post Anesthesia Assessment ---
Date of Service January 21, 2019 Post Sedation Assessment Vital Signs Temp Pulse Pulse Resp BP Pulse Ox 01/21/19 10:15 55 L 18 122/82 97 01/21/19 10:10 102 H 18 141/91 H 100 01/21/19 10:05 110 H 18 147/113 H 100 01/21/19 07:39 36.7 C 108 H 19 139/94 93 01/21/19 06:45 135 H 01/21/19 04:49 36.6 C 87 18 118/73 97 01/21/19 00:10 36.6 C 119 H 19 109/84 98 01/21/19 00:00 101 H 01/20/19 19:36 36.9 C 64 18 155/92 H 96 01/20/19 16:17 37.0 C 88 18 113/85 96 01/20/19 14:45 102 H 01/20/19 11:47 36.7 C 98 H 20 123/86 96 Recovery Score Activity: Moves 4 extremities Respiration: Deep Breath/Cough Circulation: +/-20% PreAnes Value Consciousness: Arouseable (by name) Oxygen Saturation: O2 needed for >90% Post Anesthesia Score: 8 Post Sedation Plan On clinical assessment, the patient appears to have tolerated the sedation without complications. Patient is recovering as anticipated. Patient will continue to be monitored by nursing and may be discharged when sedation discharge criteria are met per below protocol. Upon Completions of procedure and additional 15 minutes continue every 5 minute vital signs and the P.A.R. score; then discharge to a Phase I or Fast Track to Phase II per the following guidelines: * Discharge Patient to appropriate Phase II area if PAR is 8 or greater or return to pre- procedure baseline. The post - procedure orders will be as directed. * If PAR score is less than 8 or not return to pre-procedure baseline then patient will follow Phase I monitoring till PAR is reached for Phase II. The Phase I may be done in procedure room or may call to secure a Phase I area. * If naloxone or flumazenil are used for reversal, hold in Phase I for continued monitoring from when last reversal dose was given for a minimum of 60 minutes or longer pending the nurse and/or physician discretion of patient condition before discharge to Phase II. Please call the Sedation Physician to re-evaluate and complete post-note for discharge to Phase II area. Do NOT discharge from procedure sedation or Phase 1 until post- sedation evaluation note is complete by procedure /sedation MD Sedation Discharge Instructions to be given to the patient at discharge to home.
--- NOTE | 2019-01-21 10:40 | Operative Report ---
Post Operative Report Pre & Post Diagnosis Operation Date: 01/21/19 10:15 <No data on this case meets the specified criteria> Procedure Operation Date: 01/21/19 10:15 Actual Procedures p Cardioversion - New Acevedo DO Surgeon New Acevedo DO Ceramic Artist Andrea VASQUES Estimated Blood Loss 0 Findings Consistent with Post-Op Diagnosis Specimens none Description of Procedure informed consent obtained pt prepped moderate conscious sedation achieved with a total of Versed 3 mg and Fentanyl 75 mcg 360J of synchronized energy delivered with successful conversion to sinus rhythm pt tolerated well recover per protocol to be returned to pcu Start time: 1005 stop time: 1015 I attest to the content of the Intraoperative Record and any orders documented therein. Any exceptions are noted below.
[2019-01-21] MEDS: VITAMIN B COMPLEX TAB PO SCH (11:03)
[2019-01-21] MEDS: MAGNESIUM OXIDE 400 MG TAB PO SCH (11:03)
[2019-01-21] MEDS: OMEGA-3 (PURIFIED FISH OIL) 1 GM CAP PO SCH (11:03)
[2019-01-21] MEDS: CHOLECALCIFEROL 1,000 UNITS TAB PO SCH (11:04)
[2019-01-21] MEDS: ATORVASTATIN 10 MG TAB PO SCH (11:04)
[2019-01-21] MEDS: ALLOPURINOL 300 MG TAB PO SCH (11:04)
[2019-01-21] MEDS: CYANOCOBALAMIN 500 MCG TABLET (VITAMIN B-12) PO SCH (11:04)
[2019-01-21] MEDS: FOLIC ACID 400 MCG TAB PO SCH (11:05)
[2019-01-21] MEDS ORDERED: SOTALOL HCL 80 MG TAB PO SCH (15:00)
[2019-01-21] MEDS ORDERED: SOTALOL HCL 80 MG TAB PO ONE (15:00)
[2019-01-21 15:48] VITALS: BP 119/79; PULSE 65; TEMP 97.7; O2SAT 95
--- NOTE | 2019-01-21 16:26 | Cardiology Progress Note ---
Date of Service January 21, 2019 Assessment & Plan (1) Atrial fibrillation with rapid ventricular response: has completed 6 doses of Sotalol no ventricular arrhythmias QTc has actually shortened will d/c to home script for Sotalol already sent electronically through [email or web address]. will follow up with me as scheduled on 02/03 (2) Encounter for monitoring anti-arrhythmic therapy: QTc stable K level stable Subjective Pt seen and examined, s/p cardioversion. Feels well. Can already feel a difference. Denies cp, sob, palpitations, lightheadedness or dizziness. tolerating Sotalol well. tele reviewed: sinus rhythm ekg: sinus rhythm QTc of 381 Review of Systems Review of Systems: All systems reviewed & are unremarkable except as noted in HPI & below Physical Exam Physical Exam: General: Awake, alert and oriented x 3. No acute distress. HEENT: Normocephalic, atraumatic. Pupils equal, round and reactive to light and accommodation. Extraocular muscles are intact. Anicteric sclera. Moist mucous membranes. Neck: No JVD. No bruit. Cardiovascular: Regular. Positive S-4. Normal S-1 and S-2. No S-3. No murmurs or rubs. Pulmonary: Clear to auscultation B/L. No rales, rhonchi or wheezing Abdomen: Bowel sounds x 4, soft. No rebound, guarding or tenderness. No organomegaly. Extremities: No clubbing, cyanosis or edema. +2 pedal pulses bilaterally. Skin: Warm and dry. Results & Data Vital Signs (Past 12 Hours) Vital Signs Temp Pulse Pulse Resp BP Pulse Ox 01/21/19 15:47 36.5 C 65 18 119/79 95 01/21/19 11:12 36.4 C L 55 L 19 114/71 92 01/21/19 10:40 36.7 C 57 L 15 104/68 92 01/21/19 10:38 58 L 01/21/19 10:15 55 L 18 122/82 97 01/21/19 10:10 102 H 18 141/91 H 100 01/21/19 10:05 110 H 18 147/113 H 100 01/21/19 07:39 36.7 C 108 H 19 139/94 93 01/21/19 06:45 135 H 01/21/19 04:49 36.6 C 87 18 118/73 97
--- NOTE | 2019-01-22 16:56 | Discharge Summary ---
REASON FOR ADMISSION: Sotalol loading and cardioversion. HOSPITAL COURSE: The patient presented for elective inpatient admission for sotalol loading and cardioversion. The patient was monitored on telemetry for 3 days after receiving 6 doses of sotalol. During that time, there were no ventricular arrhythmias and his QTC was stable and actually shortened. He underwent DC cardioversion on 01/21/2019 without complication. Afterwards, he was feeling well and discharged to home. PROCEDURES: DC cardioversion. COMPLICATIONS: None. DISCHARGE MEDICATIONS: 1. Eliquis 5 mg p.o. b.i.d. 2. Sotalol 80 mg p.o. b.i.d. 3. Atorvastatin 10 mg daily. 4. [id number] vitamins as per patient preference. DISCHARGE DIAGNOSIS: Paroxysmal atrial fibrillation, status post successful DC cardioversion and sotalol load. DIET: No restrictions. ACTIVITIES: The patient is refrained from driving or operating heavy machinery for the next 24 hours. The patient is to increase activity as tolerated. MEDICAL FOLLOWUP: The patient is already scheduled to see me on 02/03/2019 and that appointment will be maintained.
== END 2019-01-21 16:54 | disposition home or self-care (01) | DRG 310 ==
LOC: 2S 09:22